=== PATIENT | male | born 1985 | race Caucasian/White ===

== ENCOUNTER 2019-07-14 11:49 | Emergency (ER) | payer OTHER ==
[~2019-07-14] VITALS: Ht 175.3 cm; Wt 109.8 kg
[2019-07-14 11:53] VITALS: BP 126/82; Ht 175.3 cm; Wt 109.8 kg
== END 2019-07-14 12:32 | disposition home or self-care (01) ==
LOC: ED 11:49
DX: J30.9 Allergic rhinitis, unspecified (principal)